=== PATIENT | female | born 1960 | race American Indian/Alaskan Native ===

== ENCOUNTER 2016-04-30 14:05 | Emergency (ER) | payer OTHER ==
[2016-04-30] MEDS: TORADOL IM ONE (18:20)
--- NOTE | 2016-04-30 18:40 | Emergency Department Report ---
HPI - General Chief Complaint: Pain General Time Seen by Provider: 04/30/16 17:16 - HPI HPI: 56-year-old female presents today with left lower back pain radiating down her left leg that started last night. Positive for history of similar symptoms that occurred 8 months ago. Patient states that this episode started post bending over. Denies any direct injury or trauma. Describes her pain as 5 out of 10 constant ache that is worse with movements. Try ibuprofen 800 mg without relief. Denies numbness, weakness, paresthesias. Denies bowel or bladder incontinence. Denies fever, chills, nausea, vomiting, chest pain, shortness of breath, abdominal pain. ED Past Medical Hx - Past Medical History Previous Medical History?: Yes Hx Hypertension: Yes Hx Arthritis: Yes Additional medical history: Back pain, left hip and buttock pain, High cholesterol - Surgical History Past Surgical History?: No Additional Surgical History: tubaligation - Social History Smoking Status: Never Smoker Substance Use Type: Alcohol, Non Opiate Pain, Prescribed - Medications Home Medications: Home Medications Medication Instructions Recorded Confirmed Last Taken Type Cyclobenzaprine [Flexeril] 10 mg PO TID PRN #30 tablet 04/30/16 Unknown Rx Naproxen [Naprosyn] 500 mg PO BID #20 tablet 04/30/16 Unknown Rx Pravastatin (Nf) [Pravachol] 20 mg PO QHS 04/30/16 04/30/16 04/29/16 History amLODIPine [Norvasc] 10 mg PO DAILY 04/30/16 04/30/16 04/29/16 History ED Review of Systems ROS: Stated complaint: POSS PULLED MUSCLE LT HIP/BUTTOCK Other details as noted in HPI Constitutional: denies: chills, fever, malaise Eyes: denies: eye pain ENT: denies: ear pain, throat pain, congestion Respiratory: denies: cough, shortness of breath, wheezing Cardiovascular: denies: chest pain, palpitations Endocrine: no symptoms reported Gastrointestinal: denies: abdominal pain, nausea, vomiting Musculoskeletal: back pain Neurological: denies: headache, weakness, numbness, paresthesias Physical Exam - Physical Exam Vital Signs: Vital Signs 04/30/16 14:40 Temperature 98.3 F Pulse Rate 73 Respiratory 18 Rate Blood Pressure 164/102 O2 Sat by Pulse 99 Oximetry Physical Exam: GENERAL: The patient is well-developed and well-nourished. Patient is in NAD. HEAD: Normocephalic. Atraumatic. CHEST/LUNGS: Clear to auscultation throughout. HEART/CARDIOVASCULAR: Regular rate and rhythm. No murmurs, rubs or gallops. ABDOMEN: Abdomen is soft, nontender. Bowel sounds normoactive. No guarding or rebound tenderness. EXTREMITIES: Full range of motion. Peripheral pulses intact. Capillary refill less than 2 seconds. BACK: Full ROM. No midline tenderness. Left-sided paraspinal tenderness of lumbar region. Positive for tenderness to palpation of left sciatic notch. Negative straight leg raise bilaterally. NEURO: Alert and oriented x 3. Normal gait. ED Course Vital Signs 04/30/16 14:40 Temperature 98.3 F Pulse Rate 73 Respiratory 18 Rate Blood Pressure 164/102 O2 Sat by Pulse 99 Oximetry ED Medical Decision Making - Lab Data Vital Signs 04/30/16 14:40 Temperature 98.3 F Pulse Rate 73 Respiratory 18 Rate Blood Pressure 164/102 O2 Sat by Pulse 99 Oximetry - Medical Decision Making 56-year-old female presents today with a left-sided lower back pain radiating down her left leg. Patient's reported some symptomatic relief post-Toradol shot. Patient is in no acute distress at this time. She will be discharged home and is encouraged to follow up with a primary care provider. She will be sent home on Flexeril and naproxen and is encouraged to return to the emergency room for any worsening symptoms. Critical care attestation.: If time is entered above; I have spent that time in minutes in the direct care of this critically ill patient, excluding procedure time. ED Disposition Clinical Impression: Low back pain Qualifiers: Chronicity: acute Back pain laterality: left Sciatica presence: with sciatica Sciatica laterality: sciatica of left side Qualified Code(s): M54.42 - Lumbago with sciatica, left side Disposition: DISCHARGED TO HOME OR SELFCARE Is pt being admited?: No Does the pt Need Aspirin: No Condition: Stable Instructions: Sciatica (ED) Additional Instructions: Follow-up with primary care provider. Return to the emergency department if symptoms worsen. Prescriptions: Cyclobenzaprine [Flexeril] 10 mg PO TID PRN #30 tablet PRN Reason: Muscle Spasm Naproxen [Naprosyn] 500 mg PO BID #20 tablet Referrals: PRIMARY CARE, [Primary Care Provider] - 3-5 Days KESHA BROOKE MD [Staff Physician] - 3-5 Days Forms: Work/School Release Form(ED) Time of Disposition: 18:39
[2016-04-30 18:49] VITALS: BP 153/54
== END 2016-04-30 18:48 | disposition home or self-care (01) ==
LOC: ED 14:05
DX: M54.42 Lumbago with sciatica, left side (principal); I10 Essential (primary) hypertension; M19.90 Unspecified osteoarthritis, unspecified site; E78.00 Pure hypercholesterolemia, unspecified; Z98.51 Tubal ligation status
CPT/HCPCS: 96372; 99282; J1885